=== PATIENT | female | born 1985 | race Hispanic/Latino ===

== ENCOUNTER 2018-04-28 13:48 | Outpatient (CLI) | payer MEDICAID ==
--- NOTE | 2018-04-28 18:37 | ULT ---
PELVIC ULTRASOUND: Date: 04/28/18 HISTORY: Amenorrhea. Polycystic ovary disease. COMPARISON: None. TECHNIQUE: Transabdominal and endovaginal imaging of the uterus is performed. Ovaries are interrogated with Hernandez scale, color flow, Doppler imaging, and spectral waveform analysis. FINDINGS: Uterus is identified. There are no myometrial masses. Uterus measures 3.4 x 7.0 x 4.8 cm. Endometrium has a homogeneous appearance and measures 1.8 cm. On transverse imaging, there appears to be mild indentation of the endometrium near the fundus. The possibility of arcuate uterus cannot be completely excluded. Both ovaries have a normal echotexture. Right ovary measures 4.1 x 2.8 x 3.5 cm. Left ovary measures 2.9 x 2.8 x 4.4 cm. No free fluid. Ovarian Doppler: Vascular flow to both ovaries. IMPRESSION: 1. No sonographic evidence of polycystic ovarian syndrome. 2. 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 Better interrogation of endometrium with a pelvic MRI. POS: JELANI
== END 2018-04-28 13:49 | disposition home or self-care (01) ==
LOC: SCSULT 13:48
PROVIDERS: ATTEND Nurse Practitioner
DX: E28.2 Polycystic ovarian syndrome (principal)
CPT/HCPCS: 76856